=== PATIENT | female | born 1945 | race Caucasian/White ===

== ENCOUNTER 2019-03-22 16:05 | Emergency (ER) | payer MEDICARE, OTHER, SELFPAY ==
[2019-03-22 16:06] VITALS: BP 144/71; PULSE 89; RESP 19; TEMP 36.6; O2SAT 99; BMI 34.5
--- NOTE | 2019-03-22 16:19 | RAD_ITS ---
STUDY: X-RAY - PELVIS REASON FOR EXAM: Female, 73 years old. Fall. Pain TECHNIQUE: One view of the pelvis was obtained. COMPARISON: None. FINDINGS: There is a normal bowel gas pattern. Normal visualized soft tissue structures. There is a surgical clip in the pelvis. There is mild spurring at the sacroiliac joints. Normal visualized bilateral superior and inferior pubic rami. Mild sclerosis at the pubic symphysis. Normal ischial tuberosities. Normal visualized right femoral head. Normal right acetabulum. Normal right hip joint. Normal visualized left femoral head. Normal left acetabulum. Normal left hip joint. No acute fracture. RAD/Pelvis 1 or 2 Views IMPRESSION: Mild degenerative change. No acute fracture Electronically Signed: Jose G Elizondo MD at 17:24 EDT , Service support ,
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
--- NOTE | 2019-03-22 16:45 | RAD_ITS ---
STUDY: X-RAY - LUMBAR SPINE REASON FOR EXAM: Female, 73 years old. Fall. Pain. TECHNIQUE: 3 view(s) of the lumbar spine were obtained. COMPARISON: None FINDINGS: Normal lumbar lordosis. There is no substantial scoliosis. There is grade 1 anterolisthesis at L4-5. There is generalized demineralization of the vertebral bodies. There is L1 compression fracture with anterior wedging and 15% loss of height. There is multi-level degenerative disc disease with multi-level disc space narrowing. There is facet spurring of the lower lumbar spine. The soft tissue structures are unremarkable. RAD/Lumbar Spine 2 or 3 Views IMPRESSION: Degenerative changes of the spine, as detailed above. L1 compression fracture. Electronically Signed: Jose G Elizondo MD at 17:23 EDT , Service support ,
== END 2019-03-22 17:59 | disposition home or self-care (01) ==
PROVIDERS: Emergency Provider Emergency Medicine; Family Provider Internal Medicine; PCP Internal Medicine
DX: S32.019A Unspecified fracture of first lumbar vertebra, initial encounter for closed fracture (principal); V18.9XXA Unspecified pedal cyclist injured in noncollision transport accident in traffic accident, initial encounter; Y93.9 Activity, unspecified; Y92.9 Unspecified place or not applicable; K59.00 Constipation, unspecified; E11.9 Type 2 diabetes mellitus without complications
CPT/HCPCS: 72100; 72170; 99282